=== PATIENT | female | born 1930 | race Caucasian/White ===

== ENCOUNTER 2018-01-13 19:49 | Emergency (ER) | payer MEDICARE, OTHER ==
[~2018-01-13] VITALS: Ht 162.6 cm; Wt 59.0 kg
--- NOTE | 2018-01-13 20:06 | ED Fall/Injury ---
General Chief Complaint: Trauma-Non Activation Stated Complaint: FALL Nursing Triage Note: FELL OFF BARSTOOL, BRIEF LOC Source: patient Exam Limitations: no limitations History of Present Illness Date Seen by Provider: Jan 13, 2018 Time Seen by Provider: 20:04 Initial Comments Patient fell off of a stool at home when it went out from underneath her she states. She did have a brief loss of consciousness. She does not think that she is on anticoagulants. No nausea but she does report a headache. She arrives per EMS from home in a rigid cervical collar. Occurred: just prior to arrival Severity: moderate Injuries/Pain Location: head Associated Symptoms (Fall): Headache; No Neck Pain Allergies and Home Medications Allergies Coded Allergies: No Known Drug Allergies (Unverified , 01/13/18) Patient Home Medication List Home Medication List Reviewed: Yes Review of Systems Review of Systems Constitutional: see HPI Eyes: No Symptoms Reported Ears, Nose, Mouth, Throat: no symptoms reported Respiratory: no symptoms reported Cardiovascular: no symptoms reported Genitourinary: no symptoms reported Musculoskeletal: no symptoms reported Skin: no symptoms reported Psychiatric/Neurological: See HPI Past Bevtfee-Exrvhb-Easpls Hx Patient Social History Alcohol Use: Denies Use Recreational Drug Use: No Smoking Status: Unknown if Ever Smoked Recent Foreign Travel: No Contact w/Someone Who Travel: No Recent Infectious Disease Expo: No Recent Hopitalizations: No Physical Abuse: No Sexual Abuse: No Seasonal Allergies Seasonal Allergies: Yes Past Medical History Surgeries: No Respiratory: No Cardiac: Yes High Cholesterol, Hypertension Neurological: No Genitourinary: No Gastrointestinal: No Musculoskeletal: No Endocrine: No HEENT: No Cancer: No Psychosocial: No Integumentary: No Blood Disorders: No Physical Exam Vital Signs Vital Signs - First Documented Capillary Refill : Less Than 3 Seconds Height, Weight, BMI Height: 5'4.00" Weight: 130lbs. oz. [id number]; BMI Method:Estimated General Appearance: WD/WN, no apparent distress HEENT: PERRL/EOMI, normal ENT inspection, TMs normal, other (SHe does have a large parietal and occipital scalp hematoma without laceration or active bleeding.) Neck: non-tender, full range of motion; No tender lateral, No tender midline Respiratory: normal breath sounds, no respiratory distress, no accessory muscle use Gastrointestinal: normal bowel sounds, non tender, soft Extremities: normal range of motion, non-tender Neurologic/Psychiatric: alert, normal mood/affect, oriented x 3 Skin: normal color, warm/dry Progress/Results/Core Measures Results/Orders My Orders Orders - JANE FELIPE APRN Ct Head/Cervical Spine Wo (01/13/18 19:59) Vital Signs/I&O 01/13/18 01/13/18 19:50 19:50 Temp 98.3 98.3 Pulse 107 107 Resp 16 16 B/P (MAP) 170/75 (106) 170/75 (106) Pulse Ox 97 97 Blood Pressure Mean: 106 Departure Communication (Admissions) 2047-cervical collar removed and patient discharged home in care of her sister Impression Primary Impression: Scalp hematoma Disposition: 01 HOME, SELF-CARE Condition: Stable Departure-Patient Inst. Decision time for Depature: 20:39 Patient Instructions: HEMATOMA Add. Discharge Instructions: 1. Return to the emergency room for any worsening symptoms or other concerns such as vomiting, severe headache or confusion. The swelling will persist for several days. Follow-up with your doctor next week for recheck. 2. All discharge instructions reviewed with patient and/or family. Voiced understanding. JANE FELIPE APRN Jan 13, 2018 20:06
--- NOTE | 2018-01-13 20:36 | Diagnostic Imaging Report ---
PROCEDURE: CT head and CT cervical spine without contrast. TECHNIQUE: Multiple contiguous axial images were obtained through the brain and cervical spine without the use of intravenous contrast. Sagittal and coronal reformations through the cervical spine were then performed. INDICATION: Fall striking the back of the head. COMPARISON: No previous for comparison. CT HEAD: Scalp hematoma and soft tissue swelling, posteriorly, left of midline present. The underlying calvarium, however, appears intact and there is no skull fracture. There is no acute or suspect extra-axial fluid collection. There is no evidence for intracranial hemorrhage. Cerebral cortical atrophy as well as periventricular white matter small vessel sequelae and intracranial atherosclerotic vascular calcifications. No findings of focal or generalized cerebral edema. No hemosinus. CT CERVICAL SPINE: Degenerative changes to the discs, endplates and facets are present, chronic. Body heights maintained. The alignment is anatomic. The skull base appears intact and there is no cervical fracture nor paravertebral hematoma. IMPRESSION: 1. CT head: Soft tissue scalp swelling with no appreciable fracture deformity or intracranial hemorrhage. Chronic senescent changes of atrophy, atherosclerosis and white matter small vessel disease. 2. CT cervical spine: No cervical fracture or traumatic malalignment. Dictated by: Dictated on workstation # [id number]
[2018-01-13 20:44] VITALS: BP 170/75
== END 2018-01-13 20:44 | disposition home or self-care (01) ==
LOC: ER 19:54
DX: S00.03XA Contusion of scalp, initial encounter (principal); E78.00 Pure hypercholesterolemia, unspecified; I10 Essential (primary) hypertension; W08.XXXA Fall from other furniture, initial encounter
CPT/HCPCS: 70450; 72125